=== PATIENT | male | born 1965 | race Two or more races ===

== ENCOUNTER 2018-10-20 01:28 | Emergency (ER) | payer OTHER ==
[2018-10-20] MEDS ORDERED: Sodium Chloride 0.9% 1,000 ML IV ONE (01:42)
[2018-10-20] MEDS ORDERED: Ketorolac 30 MG/ML SDV IVPUSH ONE (01:43)
[2018-10-20] MEDS ORDERED: Ondansetron 4 MG/2 ML SDV IVPUSH ONE (01:43)
[2018-10-20] MEDS ORDERED: cefTRIAXone 1 GM in Premix Bag 1 BAG IV ONE (02:17)
--- NOTE | 2018-10-20 02:19 | EDM.PDOC ---
ED HPI GENERAL MEDICAL PROBLEM - General Chief Complaint: Genitourinary Problem Stated Complaint: LOWER ABDOMINAL PAIN Time Seen by Provider: 10/20/18 05:06 - History of Present Illness INITIAL COMMENTS - FREE TEXT/NARRATIVE: HISTORY AND PHYSICAL: History of present illness: Patient is 53-year-old male presents with concern of lower abdominal pain and discomfort with urination he denies fever chills nausea vomiting denies trauma Review of systems: As per history of present illness and below otherwise all systems reviewed and negative. Past medical history: As per history of present illness and as reviewed below otherwise noncontributory. Surgical history: As per history of present illness and as reviewed below otherwise noncontributory. Social history: No reported history of drug or alcohol abuse. Family history: As per history of present illness and as reviewed below otherwise noncontributory. Physical exam: HEENT: Atraumatic, normocephalic, pupils reactive, negative for conjunctival pallor or scleral icterus, mucous membranes moist, throat clear, neck supple, nontender, trachea midline. Lungs: Clear to auscultation, breath sounds equal bilaterally, chest nontender. Heart: S1S2, regular, negative for clicks, rubs, or JVD. Abdomen: Soft, nondistended, no localized tenderness. Negative for masses or hepatosplenomegaly. Negative for costovertebral tenderness. Pelvis: Stable nontender. Genitourinary: Deferred. Rectal: Deferred. Extremities: Atraumatic, negative for cords or calf pain. Neurovascular unremarkable. Neuro: Awake, alert, oriented. Cranial nerves II through XII unremarkable. Cerebellum unremarkable. Motor and sensory unremarkable throughout. Exam nonfocal. Diagnostics: CBC CMP UA CT abdomen and pelvis Therapeutics: Rocephin 1 g IV Impression: #1 abdominal pain #2 dysuria Definitive disposition and diagnosis as appropriate pending reevaluation and review of above. lower abdominal Pain Score (Numeric/FACES): 10 - Related Data Allergies Allergy/AdvReac Type Severity Reaction Status Date / Time No Known Allergies Allergy Verified 10/20/18 01:36 Home Meds: Home Meds Lisinopril/Hydrochlorothiazide [Lisinopril-Hctz 20-25 mg Tab] 1 tab PO DAILY 02/18 [History] Past Medical History HEENT History: Reports: None Cardiovascular History: Reports: Hypertension Respiratory History: Reports: None Gastrointestinal History: Reports: None Genitourinary History: Reports: None Musculoskeletal History: Reports: None Neurological History: Reports: None Psychiatric History: Reports: None Endocrine/Metabolic History: Reports: None Hematologic History: Reports: None Immunologic History: Reports: None Oncologic (Cancer) History: Reports: None Dermatologic History: Reports: None - Infectious Disease History Infectious Disease History: Reports: Chicken Pox - Past Surgical History HEENT Surgical History: Reports: Eye Surgery Male Surgical History: Reports: None Musculoskeletal Surgical History: Reports: Other (See Below) Social & Family History - Family History Family Medical History: Noncontributory - Tobacco Use Smoking Status *Q: Never Smoker - Recreational Drug Use Recreational Drug Use: No ED ROS GENERAL - Review of Systems Review Of Systems: ROS reveals no pertinent complaints other than HPI. ED EXAM, GENERAL - Physical Exam Exam: See Below (See dictation) Course - Vital Signs Last Recorded V/S: Last Vital Signs Temp 36.8 C 10/20/18 01:36 Pulse 116 H 10/20/18 01:36 Resp 20 10/20/18 01:36 BP 145/97 H 10/20/18 01:36 Pulse Ox 95 10/20/18 01:36 - Orders/Labs/Meds Orders: Active Orders 24 hr Category Date Time Status UA RFX GROVER AND CULT IF INDIC [URIN] Stat Lab 10/20/18 05:05 Ordered Labs: Laboratory Tests 10/20/18 10/20/18 Range/Units 01:50 01:50 WBC 15.21 H (4.0-11.0) K/uL RBC 4.58 (4.50-5.90) M/uL Hgb 15.7 (13.0-17.0) g/dL Hct 45.4 (38.0-50.0) % MCV 99.1 H (80.0-98.0) fL MCH 34.3 H (27.0-32.0) pg MCHC 34.6 (31.0-37.0) g/dL RDW Std Deviation 46.5 (28.0-62.0) fl RDW Coeff of Andrei 13 (11.0-15.0) % Plt Count 298 (150-400) K/uL MPV 10.90 (7.40-12.00) fL Neut % (Auto) 79.7 (48.0-80.0) % Lymph % (Auto) 12.3 L (16.0-40.0) % [place] % (Auto) 7.4 (0.0-15.0) % Eos % (Auto) 0.4 (0.0-7.0) % Baso % (Auto) 0.2 (0.0-1.5) % Neut # (Auto) 12.1 H (1.4-5.7) K/uL Lymph # (Auto) 1.9 (0.6-2.4) K/uL [place] # (Auto) 1.1 H (0.0-0.8) K/uL Eos # (Auto) 0.1 (0.0-0.7) K/uL Baso # (Auto) 0.0 (0.0-0.1) K/uL Nucleated RBC % 0.0 /100WBC Nucleated RBCs # 0 K/uL Sodium 139 (136-148) mmol/L Potassium 3.7 (3.5-5.1) mmol/L Chloride 101 (98-107) mmol/L Carbon Dioxide 23.5 (21.0-32.0) mmol/L BUN 7 (7.0-18.0) mg/dL Creatinine 0.8 (0.8-1.3) mg/dL Est Cr Clr Drug Dosing 99.84 mL/min Estimated GFR (MDRD) > 60.0 ml/min Glucose 118 H (74-106) mg/dL Calcium 9.7 (8.5-10.1) mg/dL Total Bilirubin 0.8 (0.2-1.0) mg/dL AST 27 (15-37) IU/L ALT 30 (14-63) IU/L Alkaline Phosphatase 75 (46-116) U/L Total Protein 7.9 (6.4-8.2) g/dL Albumin 3.7 (3.4-5.0) g/dL Globulin 4.2 H (2.6-4.0) g/dL Albumin/Globulin Ratio 0.9 (0.9-1.6) Meds: Medications Discontinued Medications Generic Name Dose Route Start Last Admin Trade Name Freq PRN Reason Stop Dose Admin Sodium Chloride 1,000 mls @ 999 mls/hr 10/20/18 01:42 10/20/18 01:53 Normal Saline IV 08/16/19 02:42 999 mls/hr .BOLUS ONE Administration Ceftriaxone Sodium/Dextrose 1 50 mls @ 100 mls/hr 10/20/18 02:17 10/20/18 02: 43 gm/ Premix IV 10/20/18 02:46 100 mls/hr ONETIME ONE Administration Metronidazole 500 mg/ Premix 100 mls @ 100 mls/hr 10/20/18 02:57 10/20/18 03: 12 IV 10/20/18 03:56 100 mls/hr ONETIME ONE Administration Metronidazole Confirm 10/20/18 02:59 10/20/18 03:19 Flagyl 500 Mg In Ns 100 Ml Administered 10/20/18 03:00 Not Given Dose 100 mls @ as directed .ROUTE .STK-MED ONE Ketorolac Tromethamine 30 mg 10/20/18 01:43 10/20/18 01:52 Toradol IVPUSH 10/20/18 01:44 30 mg ONETIME ONE Administration Ondansetron HCl 4 mg 10/20/18 01:43 10/20/18 01:53 Zofran IVPUSH 10/20/18 01:44 4 mg ONETIME ONE Administration Departure - Departure Time of Disposition: 05:06 Disposition: Home, Self-Care 01 Condition: Good Clinical Impression: UTI, Urinary tract infectious disease - Discharge Information Referrals: PCP,None [Primary Care Provider] - Forms: ED Department Discharge Additional Instructions: The following information is given to patients seen in the emergency department who are being discharged to home. This information is to outline your options for follow-up care. We provide all patients seen in our emergency department with a follow-up referral. The need for follow-up, as well as the timing and circumstances, are variable depending upon the specifics of your emergency department visit. If you don't have a primary care physician on staff, we will provide you with a referral. We always advise you to contact your personal physician following an emergency department visit to inform them of the circumstance of the visit and for follow-up with them and/or the need for any referrals to a consulting specialist. The emergency department will also refer you to a specialist when appropriate. This referral assures that you have the opportunity for followup care with a specialist. All of these measure are taken in an effort to provide you with optimal care, which includes your followup. Under all circumstances we always encourage you to contact your private physician who remains a resource for coordinating your care. When calling for followup care, please make the office aware that this follow-up is from your recent emergency room visit. If for any reason you are refused follow-up, please contact the [facility] emergency department at and asked to speak to the emergency department charge nurse. [facility] [address] [place] [id number] Augmentin as prescribed push fluids motor/obstructive follow-up primary medical doctor return as needed as discussed - My Orders Last 24 Hours: My Active Orders 10/20/18 05:05 UA RFX GROVER AND CULT IF INDIC [URIN] Stat - Assessment/Plan Last 24 Hours: My Active Orders 10/20/18 05:05 UA RFX GROVER AND CULT IF INDIC [URIN] Stat
[2018-10-20 02:31] LABS: CHLORIDE,CL 101 mmol/L (98-107); SODIUM,NA 139 mmol/L (136-148)
--- NOTE | 2018-10-20 02:43 | CT ---
INDICATION: Abdominal pain, nausea, vomiting, blood in urine today TECHNIQUE: CT Abdomen and pelvis without i.v. contrast. Coronal and sagittal reformats were obtained. COMPARISON: None FINDINGS: Moderate degradation of image quality is present due to the patient`s inability to maintain a breath hold. Lower chest: Unremarkable. Liver: Unremarkable. Spleen: Unremarkable. Pancreas: Unremarkable. Gallbladder: Unremarkable. Kidney: A tiny ill-defined focus of increased density seen in the right lower pole renal calices which may represent either tiny stone or small amount of calcific debris. Adrenal: Unremarkable. Bowel: There is a giant diverticulum along the left aspect of the sigmoid colon measuring 3.8 x 2.7 cm. The sigmoid is partially collapsed and wall thickening in the sigmoid colon cannot be excluded. The appendix cannot be identified but there are no inflammatory changes noted in the right lower quadrant. Vascular: Unremarkable. Lymph: Unremarkable. Peritoneum: Unremarkable. No pneumoperitoneum is seen. No significant ascites is noted. Pelvis: moderate to severe diffuse bladder wall thickening is noted. Ill-defined punctate densities seen in the right posterior bladder on image 252. Soft tissue: Unremarkable. Bone: Unremarkable for age. IMPRESSIONS: 1. Moderate to severe diffuse bladder wall thickening is noted. This may be due to chronic bladder outlet obstruction,urinary tract infection or cystitis. 2. Ill-defined punctate densities seen in the right posterior bladder on image 252. This may be due to small amount of milk of calcium or recently passed stone. 3. The sigmoid is partially collapsed and wall thickening in the sigmoid colon cannot be excluded. Clinical correlation is recommended to exclude diverticulitis. Follow-up assessment with barium enema or colonoscopy recommended unless already recently performed. Dictated by Andriy Guajardo MD @ 10/20/2018 2:41:25 AM Please note that all CT scans at this facility use dose modulation, iterative reconstruction, and/or weight-based dosing when appropriate to reduce radiation dose to as low as reasonably achievable. Dictated by: Andriy Guajardo MD @ 10/20/2018 02:41:37 (Electronically Signed)
[2018-10-20] MEDS ORDERED: metroNIDAZOLE/Normal Saline 500 MG in Premix Bag 1 BAG IV ONE (02:57)
[2018-10-20] MEDS ORDERED: metroNIDAZOLE/Normal Saline 100 ML ONE (02:59)
[2018-10-20 05:45] VITALS: BP 97/66
== END 2018-10-20 05:44 | disposition home or self-care (01) ==
LOC: MW.ED 01:28
DX: N39.0 Urinary tract infection, site not specified (principal); I10 Essential (primary) hypertension; Z79.899 Other long term (current) drug therapy
CPT/HCPCS: 36415; 74176; 80053; 81001; 81003; 85025; 87086; 87088; 87186; 96361; 96365; 96367; 96375; 99284; J0696; J1885; J2405; J3490; J7040